=== PATIENT | female | born 1970 | race Caucasian/White ===

== ENCOUNTER 2017-01-04 11:50 | Emergency (ER) | payer OTHER ==
[~2017-01-04] VITALS: Ht 167.6 cm; Wt 54.5 kg
[2017-01-04 11:53] VITALS: BP 142/82; PULSE 105; RESP 20; O2SAT 99
--- NOTE | 2017-01-04 12:39 | ED.REPORT ---
HPI-General Illness Date of Service Jan 04, 2017 ED Provider: Flavio Roblero PAC History of Present Illness: 46yo female with hx. of RA, has been off her meds for a few months and c/o diffuse arthralgias, body wide. Previously on steroids and methotrexate through [facility], Merline Gloria PA-C, is her Rheumatology PA. Nursing Notes Stated Complaint: RHEUMATOID ARTHRITIS Chief Complaint: Extremity Trauma Nursing Notes Reviewed: Yes Allergies: Coded Allergies: No Known Allergies (Unverified , 01/04/17) Scheduled Methylprednisolone (MethylprednisoLONE) 8 Mg Tablet 8 MG PO DAILY Scheduled PRN Hydrocodone-Acetaminophen 7.5-325 mg (Hydrocodone-Acetaminophen 7.5-325 mg) 1 Each Tablet 1 TABLET PO QID PRN PRN For Pain General Time Seen by MD: 12:37 Chief Complaint Other Generalized pain Hx Obtained From: Patient Arrived By: Wheelchair Sudden in Onset?: No Onset Occurred: More than a week ago... (>6 months) Symptom Duration: More than a week... (2 months) Location: : Hand left: Hand right: Knee left: Knee right: Shoulder left: Shoulder right Quality: Same as prior Severity: Current: Severe Severity: Maximum: Severe Associated with: Reports: Pain on walking, Denies: Diaphoresis, Fever, Numb extremities, Rash, Weakness Recent Healthcare: No recent doctor visit Similar Sx Previous: Yes Past Medical History Past Medical History Rheumatoid arthritis Social History Alcohol Use: Denies alcohol use Ambulatory Status Independent Review of Systems Full Review of Systems Constitutional: Denies: Chills, Fever Respiratory: Denies: Shortness of breath Cardiovascular: Denies: Chest pain Musculoskeletal: Reports: Joint pain, Myalgia, Denies: Extremity swelling Psychiatric: Reports: Stress Physical Exam Vital Signs Vital Signs Date Time Temp Pulse Resp B/P Pulse Ox O2 Delivery O2 Flow Rate FiO2 01/04/17 14:22 106 20 113/70 100 Room Air 01/04/17 11:53 37 105 20 142/82 99 Room Air Initial VS: Reviewed General/Constitutional: Awake, Alert, Not toxic appearing Distress / Hydration: Positive: Distress mild Neck: Supple, No meningismus Respiratory / Chest: Breath sounds NL, Breath sounds = bilat, No respiratory distress Cardiovascular: Heart rate NL, Regular rhythm, Heart sounds NL Abdomen: Soft Upper Extremities Upper Extremity / MS: Inspection NL, No erythema, No deformity, Neurologic intact, Vascular intact Right Hand: Positive: ROM reduced, Tenderness present... (Severe), Negative: Neuro deficit present... Left Hand: Positive: ROM reduced, Tenderness present... (Severe), Negative: Neuro deficit present... Left Knee: Positive: Swelling present..., Tenderness present... (Moderate) Re-Eval/Medical Decision Med Decision/Clinical Course Spoke with Merline Gloria PA-C at [facility]. She advised methyprednisolone 8mg daily x 1 week and will have colleague see her on 01/06 at 8:40AM. Pharmacy reports dexamethasone 4mg PO is reasonable swap in ED for methylprednisolone (we don't have methylprednisolone). Case discussed with Dr. Hewitt who concurs with plan. Counseled Regarding: Diagnosis, Need for follow-up, When/why to return to ED Discharge & Departure Primary Impression: Arthritis, rheumatoid Rheumatoid arthritis location: multiple sites Rheumatoid factor presence: with rheumatoid factor Qualified Code: M05.79 - Rheumatoid arthritis with rheumatoid factor of multiple sites without organ or systems involvement Disposition: Home Discharge Condition All VS Reviewed: Yes Patient Instructions: Rheumatoid Arthritis (ED) Additional Instructions: Take meds as prescribed, [facility] (be there at 8:20am to check in. Return to ER if anything worsens. Referrals: Lisa Cabello PA-C Other Weds. 01/06 8:40am EDSupervising Provider for APC: Hever Hewitt MD, Christopher R PAC Jan 04, 2017 12:39
[2017-01-04] MEDS ORDERED: HYDROcodone-APAP 5-325 mg Tablet PO ONE (13:10)
[2017-01-04] MEDS ORDERED: METH8TAB5 PO (13:43)
[2017-01-04] MEDS ORDERED: HYDR-3825 PO (13:43)
[2017-01-04 14:22] VITALS: BP 113/70; PULSE 106; RESP 20; O2SAT 100
== END 2017-01-04 14:23 | disposition home or self-care (01) ==
LOC: SED 11:50
DX: M06.9 Rheumatoid arthritis, unspecified (principal)